=== PATIENT | female | born 1965 | race Caucasian/White ===

== ENCOUNTER 2016-06-14 18:41 | Emergency (ER) | payer BC ==
[2016-06-14 19:34] VITALS: BP 115/62
--- NOTE | 2016-06-14 20:04 | ED ---
Venus Babcock Erika, scribed for Rodrigo Sheikh MD on 06/14/16 at 1959 . Abdominal Pain/Female - HPI Summary HPI Summary: Patient is a 50-year-old female presenting to the ED with a CC of right lateral abdominal pain. Patient reports that she did a Crossfit workout last week, and had severe right lateral pain afterwards. Pt rested and took ibuprofen for 4 days, and the pain improved. On 06/10/2016 and yesterday, patient worked out again, and was still okay. Today, patient worked out and during it, jumped up to a bar, which is when the same pain returned. Pt also took ibuprofen today. Patient denies any nausea, vomiting, and diarrhea. Hx SBO last year, abdominoplasty 2 years ago. - History of Current Complaint Chief Complaint: EDSoftTissueLowExtr Stated Complaint: RT SIDE PAIN Time Seen by Provider: 06/14/16 19:42 Hx Obtained From: Patient Onset/Duration: Sudden Onset, Lasting Weeks, Worse Since - today Timing: Constant Severity Currently: Moderate Pain Intensity: 2 Pain Scale Used: 0-10 Numeric Location: Other - right lateral Character: Other: - feels muscular per pt Aggravating Factor(s): Movement Alleviating Factor(s): OTC Analgesics - ibuprofen Associated Signs and Symptoms: Negative: Nausea, Vomiting, Diarrhea Allergies/Adverse Reactions: Allergies Allergy/AdvReac Type Severity Reaction Status Date / Time Codeine AdvReac Mild Headache Verified 03/05/16 14:27 PMH/Surg Hx/FS Hx/Imm Hx Endocrine/Hematology History: Denies: Hx Diabetes, Hx Thyroid Disease Cardiovascular History: Denies: Hx Hypercholesterolemia, Hx Hypertension, Hx Pacemaker/ICD, Hx Peripheral Vascular Disease GI History: Reports: Hx Irritable Bowel History: Denies: Hx Renal Disease Musculoskeletal History: Denies: Hx Arthritis, Hx Rheumatoid Arthritis, Hx Osteoporosis, Hx Scoliosis Sensory History: Reports: Hx Contacts or Glasses Denies: Hx Cataracts, Hx Glaucoma, Hx Hearing Aid Opthamlomology History: Reports: Hx Contacts or Glasses Denies: Hx Cataracts, Hx Glaucoma Neurological History: Denies: Hx Headaches, Hx Seizures, Hx Transient Ischemic Attacks (TIA), Other Neuro Impairments/Disorders Psychiatric History: Denies: Hx Anxiety, Hx Depression, Hx Panic Disorder - Cancer History Hx Chemotherapy: No Hx Radiation Therapy: No - Surgical History Surgery Procedure, Year, and Place: (1986), Kidney biopsy (1989) umbilical hernia repair (1963), abdominoplasty (2013?). Rt HEMIPLASTY -BOWEL RESECTION -04/2015 Hx Anesthesia Reactions: No Infectious Disease History: No Infectious Disease History: Denies: Traveled Outside the [place] in Last 30 Days - Family History Known Family History: Positive: Hypertension - Social History Alcohol Use: Daily Hx Substance Use: No Substance Use Type: Reports: None Hx Tobacco Use: No Smoking Status (MU): Never Smoked Tobacco Review of Systems Negative: Fever Positive: Abdominal Pain - states feels muscular. Negative: Vomiting, Diarrhea , Nausea All Other Systems Reviewed And Are Negative: Yes Physical Exam Triage Information Reviewed: Yes Vital Signs On Initial Exam: Initial Vitals Temp Pulse Resp BP Pulse Ox 98.2 F 85 18 114/63 99 06/14/16 18:47 06/14/16 18:47 06/14/16 18:47 06/14/16 18:47 06/14/16 18:47 Vital Signs Reviewed: Yes Appearance: Positive: Well-Appearing, Pain Distress - mild discomfort Skin: Positive: Warm Head/Face: Positive: Normal Head/Face Inspection Eyes: Positive: JEROD ENT: Positive: Hearing grossly normal Neck: Positive: Supple Respiratory/Lung Sounds: Positive: Breath Sounds Present Cardiovascular: Positive: Normal Abdomen Description: Positive: Soft, Other: - tender rt lat lower abd wall Bowel Sounds: Positive: Present Musculoskeletal: Positive: Strength/ROM Intact Neurological: Positive: Sensory/Motor Intact, Alert, Oriented to Person Place, Time - Sutter Coma Scale Coma Scale Total: 15 Diagnostics - Vital Signs Vital Signs Temp Pulse Resp BP Pulse Ox 06/14/16 19:32 78 100 06/14/16 19:30 115/62 06/14/16 18:47 98.2 F 85 18 114/63 99 - Laboratory Result Diagrams: 06/14/16 20:25 06/14/16 20:25 Lab Statement: Any lab studies that have been ordered have been reviewed, and results considered in the medical decision making process. - CT CT A/P W/O CT Interpretation Completed By: Radiologist - IMPRESSION: The constellation of findings given the clinical context is consistent with a tear of the RIGHT internal oblique abdominal wall muscle with associated 2 x 3.3 x 3.5 cm intramuscular hematoma. Re-Evaluation - Re-Evaluation First Eval Re-Evaluation Time: 20:52 Comment: Discussed positive CT results. Patient will be discharged Abdominal Pain Fem Course/Dx - Course Course Of Treatment: A 50 y/o F presents to the ED with a CC of right lateral abdominal pain. Pt reports pain feels muscular. Pt declines pain medication in the ED. CT A/P shows a constellation of findings given the clinical context is consistent with a tear of the RIGHT internal oblique abdominal wall muscle with associated 2 x 3.3 x 3.5 cm intramuscular hematoma. Patient was notified of the results. Pt was discharged home with follow up from her PCP. - Diagnoses Provider Diagnoses: Abdominal wall hematoma Discharge - Discharge Plan Condition: Stable Disposition: HOME Patient Education Materials: Hematoma (ED) Referrals: Christine Renteria NP [Primary Care Provider] - Additional Instructions: Please follow up with your PCP. The documentation as recorded by the Venus aldrich Erika accurately reflects the service I personally performed and the decisions made by , Rodrigo Sheikh MD.
[2016-06-14 20:37] LABS: Hematocrit 38 % (35-47); Hemoglobin 12.9 g/dl (12.0-16.0); Mean Corpuscular HGB Conc 34 g/dl (31-36); Mean Corpuscular Hemoglobin 31 pg (27-31); Mean Corpuscular Volume 93 fL (80-97); Mean Platelet Volume 11 um3 (7.4-10.4); Red Cell Distribution Width 14 % (10.5-15); White Blood Count 6.7 10^3/ul (3.5-10.8)
[2016-06-14 20:45] LABS: Urine Bacteria 1+ (Absent); Urine Bilirubin Negative (Negative); Urine Glucose Negative (Negative); Urine Nitrite Negative (Negative)
--- NOTE | 2016-06-14 20:49 | RAD ---
INDICATION: Anterior abdominal wall pain. Assess for hematoma/muscle tear. 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 Previous umbilical hernia repair, abdominoplasty, bowel resection. COMPARISON: April 22, 2015 CT. TECHNIQUE: Multidetector CT images were obtained from the lung bases to the ischial tuberosities. Evaluation of the viscera is limited without IV contrast. Multiplanar reformation. REPORT: Unremarkable visualized inferior thorax. The liver, gallbladder, pancreas, and spleen are unremarkable. Negative for CT abnormality of the unopacified upper GI or small bowel. Unremarkable postsurgical ileocolonic anastomosis. No appendix visualized. Unremarkable colon. Negative for ascites, free air, hernias. Normal adrenal glands. Unremarkable unopacified kidneys. Negative for obstructive uropathy. No abnormality along the course of the nondilated ureters. Unremarkable partially distended urinary bladder. Retroverted uterus. Unremarkable adnexal regions. No lymphadenopathy evident. Normal diameter abdominal aorta and iliac arteries. Physiologic distention of the IVC. There is a 2 cm transverse by 3.3 cm AP by 3.5 cm cephalocaudal hyperdense hematoma in the RIGHT lateral abdominal wall musculature just above the iliac crest corresponding with the internal oblique muscle. Surrounding soft tissue edema. Negative for fracture or suspicious focal osseous lesions. IMPRESSION: The constellation of findings given the clinical context is consistent with a tear of the RIGHT internal oblique abdominal wall muscle with associated 2 x 3.3 x 3.5 cm intramuscular hematoma.
[2016-06-14 20:52] LABS: Albumin 3.9 g/dL (3.2-5.2); BUN/Creatinine Ratio 17.9 (8-20); Calcium 9.3 mg/dL (8.6-10.3); EGFR Non-African American 54.4 (>60); Globulin 3.2 g/dL (2-4); Potassium 3.5 mmol/L (3.5-5.0); Total Bilirubin 0.4 mg/dL (0.2-1.0); Total Protein 7.1 g/dL (6.4-8.9)
== END 2016-06-14 21:05 | disposition home or self-care (01) ==
LOC: ED 18:41
DX: S30.1XXA Contusion of abdominal wall, initial encounter (principal); R10.84 Generalized abdominal pain; X58.XXXA Exposure to other specified factors, initial encounter; Y93.A4 Activity, circuit training; Y92.9 Unspecified place or not applicable
CPT/HCPCS: 36415; 74176; 80053; 81003; 81015; 82150; 85025; 87086; 99282

== ENCOUNTER 2020-07-19 11:28 | Observation (INO) ==
[2020-07-19] MEDS ORDERED: NS 0.9% 1000 ml BAG 1,000 ML IV ONE (12:28)
[2020-07-19 12:40] LABS: Hematocrit 39 % (35-47); Hemoglobin 13.4 g/dL (12.0-16.0); Mean Corpuscular HGB Conc 35 g/dL (31-36); Mean Corpuscular Hemoglobin 33 pg (27-31); Mean Corpuscular Volume 96 fL (80-97); Mean Platelet Volume 9.9 fL (7.4-10.4); Platelet Count 212 10^3/uL (150-450); Red Blood Count 4.03 10^6 /uL (3.70-4.87); Red Cell Distribution Width 13 % (10-15); White Blood Count 5.3 10^3/uL (3.5-10.8)
[2020-07-19 12:55] LABS: ABS Lymphocytes 0.8 10^3/ul (1.0-4.8); ABS Monocytes 0.2 10^3/ul (0-0.8); ABS Neutrophils 4.2 10^3/ul (1.5-7.7); Albumin 4.7 g/dL (3.2-5.2); Albumin/Globulin Ratio 1.7 (1-3); BUN/Creatinine Ratio 20.4 (8-20); Calcium 10.1 mg/dL (8.6-10.3); EGFR Non-African American 58.7 (>60); Eosinophil % 0.6 %; Globulin 2.7 g/dL (2-4); Lymphocyte % 15.4 %; Magnesium 2.1 mg/dL (1.9-2.7); Potassium 4.2 mmol/L (3.5-5.0); Total Bilirubin 0.5 mg/dL (0.2-1.0); Total Protein 7.4 g/dL (6.4-8.9)
[2020-07-19] MEDS ORDERED: Iodixanol (CONTRAST) 320 MG/ML 100 ML SDV IV ONE (14:34)
[2020-07-19 16:45] LABS: HDL Cholesterol 86.5 mg/dL
[2020-07-20 06:37] LABS: ABS Eosinophils 0.1 10^3/ul (0-0.6); ABS Lymphocytes 1.4 10^3/ul (1.0-4.8); ABS Monocytes 0.3 10^3/ul (0-0.8); ABS Neutrophils 1.5 10^3/ul (1.5-7.7); Eosinophil % 3.2 %; Hematocrit 37 % (35-47); Hemoglobin 12.6 g/dL (12.0-16.0); Lymphocyte % 41.3 %; Mean Corpuscular HGB Conc 34 g/dL (31-36); Mean Corpuscular Hemoglobin 33 pg (27-31); Mean Corpuscular Volume 97 fL (80-97); Mean Platelet Volume 10.5 fL (7.4-10.4); Platelet Count 202 10^3/uL (150-450); Red Blood Count 3.82 10^6 /uL (3.70-4.87); Red Cell Distribution Width 13 % (10-15); White Blood Count 3.3 10^3/uL (3.5-10.8)
[2020-07-20 06:51] LABS: Albumin 4.1 g/dL (3.2-5.2); Albumin/Globulin Ratio 1.7 (1-3); BUN/Creatinine Ratio 18.2 (8-20); Calcium 9.5 mg/dL (8.6-10.3); EGFR African American 80.4 (>60); EGFR Non-African American 66.5 (>60); Globulin 2.4 g/dL (2-4); Total Bilirubin 0.5 mg/dL (0.2-1.0); Total Protein 6.5 g/dL (6.4-8.9)
[2020-07-20 08:15] VITALS: BP 109/55
== END 2020-07-20 11:26 | disposition home or self-care (01) ==
LOC: MEDTELE 11:28 → ED 11:28
PROVIDERS: ADMIT Internal Medicine; ATTEND Internal Medicine